=== PATIENT | female | born 1995 | race African-American/Black ===

== ENCOUNTER 2017-01-28 20:49 | Emergency (ER) | payer BC ==
[~2017-01-28] VITALS: Ht 162.6 cm; Wt 49.9 kg
[2017-01-28 21:04] VITALS: BP 126/95
== END 2017-01-28 21:41 | disposition home or self-care (01) ==
LOC: ER 20:55
DX: J02.9 Acute pharyngitis, unspecified (principal); J04.0 Acute laryngitis; E05.90 Thyrotoxicosis, unspecified without thyrotoxic crisis or storm; Z88.6 Allergy status to analgesic agent
CPT/HCPCS: 99283; A4606; Z7610